=== PATIENT | female | born 1955 | race Caucasian/White ===

== ENCOUNTER 2018-04-03 13:05 | Emergency (ER) | payer MEDICAID ==
[~2018-04-03] VITALS: Ht 160 cm; Wt 80.3 kg
[2018-04-03 13:28] VITALS: BP 125/77
[2018-04-03 13:56] LABS: BASOPHILS % (AUTO) 0.7 % (0-1); EOSINOPHILS # (AUTO) 0.2 X10'3 (0-0.9); HEMOGLOBIN 11.9 g/dl (12.0-16.0); LYMPHOCYTES # (AUTO) 1.4 X10'3 (1.1-4.8); MEAN CORPUSCULAR HEMOGLOBIN 26.8 PG (27.0-31.0); MEAN CORPUSCULAR VOLUME 81.2 FL (78-98); MEAN PLATELET VOLUME 8.6 FL (7.4-10.4); MONOCYTES # (AUTO) 0.6 X10'3 (0-0.9); MONOCYTES % (AUTO) 11.6 % (2-12); NEUTROPHILS # (AUTO) 3.2 X10'3 (1.8-7.7); NEUTROPHILS % (AUTO) 58.7 % (42-75); PLATELET COUNT 267 X10'3 (140-440); RED BLOOD COUNT 4.44 X10'6 (4.20-5.60); RED CELL DISTRIBUTION WIDTH 16.5 % (11.5-14.5); WHITE BLOOD COUNT 5.5 X10'3 (4.5-11.0)
[2018-04-03 14:19] LABS: ALANINE AMINOTRANSFERASE 21 U/L (12-78); ALBUMIN 2.9 G/DL (3.4-5.0); ALBUMIN/GLOBULIN RATIO 0.7 (1.1-1.5); ALKALINE PHOSPHATASE 119 IU/L (46-116); ANION GAP 11 (8-16); ASPARTATE AMINO TRANSFERASE 17 U/L (10-37); BILIRUBIN,TOTAL 0.2 MG/DL (0.1-1.0); BLOOD UREA NITROGEN 17 MG/DL (7-18); CALCIUM 8.4 MG/DL (8.5-10.1); CHLORIDE 99 MMOL/L (99-107); CREATININE 0.63 MG/DL (0.40-0.90); GLUCOSE 123 MG/DL (70-104); POTASSIUM 3.9 MMOL/L (3.5-5.1); SODIUM 135 MMOL/L (135-145); TOTAL CARBON DIOXIDE 25.3 MMOL/L (24-32); TOTAL PROTEIN 7.1 G/DL (6.4-8.2); eGFR > 90 ML/MIN
[2018-04-03 16:01] LABS: CLARITY,URINE CLEAR (Clear); COLOR,URINE YELLOW (Yellow); GLUCOSE, URINE NEGATIVE (Neg); KETONES,URINE NEGATIVE (Neg); LEUKOCYTE ESTERASE ,URINE NEGATIVE (Neg); NITRITES, URINE NEGATIVE (Neg); OCCULT BLOOD,URINE TRACE-INTACT (Neg); PH,URINE 6.5 (4.8-8.0); PROTEIN,URINE NEGATIVE (Neg); UROBILINOGEN,URINE 0.2 E.U/dL (0.2-1.0)
[2018-04-03 16:02] LABS: UA COLLECTION TYPE VOIDED
[2018-04-03 16:07] LABS: BACTERIA,URINE FEW /HPF (Neg); MUCUS STRANDS NONE SEEN /LPF (Neg); RBC,URINE 0-2 /HPF (0-2); SQUAMOUS EPITHELIAL CELL,UR NONE SEEN /LPF (FEW); WBC,URINE 0-4 /HPF (0-4)
[2018-04-03] MEDS ORDERED: GEL3000G TOP (16:49)
== END 2018-04-03 17:18 | disposition home or self-care (01) ==
LOC: ER 13:06
DX: T81.89XA Other complications of procedures, not elsewhere classified, initial encounter (principal); L08.9 Local infection of the skin and subcutaneous tissue, unspecified; Z88.5 Allergy status to narcotic agent; Z88.8 Allergy status to other drugs, medicaments and biological substances; Z79.899 Other long term (current) drug therapy; Y92.9 Unspecified place or not applicable
CPT/HCPCS: 36415; 71045; 80053; 81001; 83605; 84145; 85025; 87040; 87186; 99285; A6223; A6449; 87077

== ENCOUNTER 2021-09-05 08:49 | Outpatient (CLI) | payer MEDICARE ==
[~2021-09-05 08:49] MED LIST: GEL3000G TOP
== END 2021-09-05 23:59 | disposition home or self-care (01) ==
LOC: RAD 08:49
PROVIDERS: ATTEND Psychiatry & Neurology Neurology
DX: G43.409 Hemiplegic migraine, not intractable, without status migrainosus (principal)
CPT/HCPCS: 95816

== ENCOUNTER 2021-09-23 12:36 | Outpatient (CLI) | payer MEDICARE | END 2021-09-23 23:59 | disposition home or self-care (01) | LOC: CARD DIAG 12:36 | PROVIDERS: ATTEND Internal Medicine Cardiovascular Disease | DX: I08.1 Rheumatic disorders of both mitral and tricuspid valves (principal); G43.409 Hemiplegic migraine, not intractable, without status migrainosus | CPT/HCPCS: 93306 ==

== ENCOUNTER 2023-10-07 02:32 | Outpatient (CLI) | payer MEDICARE ==
[2023-10-07] VITALS (21 sets, daily range): BP systolic 99–125; BP diastolic 42–73; PULSE 51–57
== END 2023-10-07 23:59 | disposition home or self-care (01) ==
LOC: CARD DIAG 02:32
PROVIDERS: ATTEND Internal Medicine Interventional Cardiology
DX: R55 Syncope and collapse (principal)
CPT/HCPCS: 93660

== ENCOUNTER 2024-05-18 06:39 | Inpatient (IN) | payer MEDICARE ==
[2024-05-12 11:02] LABS: BILIRUBIN,URINE NEGATIVE (Neg); CLARITY,URINE CLEAR (Clear); COLOR,URINE YELLOW (Yellow); GLUCOSE, URINE NEGATIVE (Neg); KETONES,URINE NEGATIVE (Neg); LEUKOCYTE ESTERASE ,URINE NEGATIVE (Neg); NITRITES, URINE NEGATIVE (Neg); OCCULT BLOOD,URINE NEGATIVE (Neg); PROTEIN,URINE NEGATIVE (Neg)
[2024-05-12 11:06] LABS: UA COLLECTION TYPE CLN CATCH MIDSTREAM
[2024-05-12 11:10] LABS: EOSINOPHILS # (AUTO) 0.1 X10'3 (0-0.9); EOSINOPHILS % (AUTO) 3.5 % (0-6); LYMPHOCYTES # (AUTO) 1.3 X10'3 (1.1-4.8); MEAN CORPUSCULAR HEMOGLOBIN 31.2 PG (27.0-31.0); MEAN CORPUSCULAR HGB CONC 33.5 g/dL (33.0-36.5); MEAN CORPUSCULAR VOLUME 93.1 FL (78-98); MEAN PLATELET VOLUME 8.4 FL (7.4-10.4); MONOCYTES # (AUTO) 0.3 X10'3 (0-0.9); MONOCYTES % (AUTO) 9.5 % (2-12); NEUTROPHILS # (AUTO) 1.8 X10'3 (1.8-7.7); PRE OP HEMATOCRIT 37.6 % (35.0-45.0); PRE OP HEMOGLOBIN 12.6 g/dL (12.0-16.0); PRE OP PLATELET COUNT 210 X10'3 (140-440); PRE OP WHITE BLOOD COUNT 3.6 10'3 (4.8-10.8); RED BLOOD COUNT 4.04 X10'6 (4.20-5.60); RED CELL DISTRIBUTION WIDTH 15.1 % (11.5-14.5)
[2024-05-12 11:17] LABS: ALBUMIN 3.2 G/DL (3.4-5.0); ALBUMIN/GLOBULIN RATIO 0.8 (1.1-1.5); ALKALINE PHOSPHATASE 88 IU/L (46-116); BLOOD UREA NITROGEN 18 MG/DL (7-18); CALCIUM 8.7 MG/DL (8.5-10.1); CHLORIDE 104 MMOL/L (99-107); CREATININE 0.62 MG/DL (0.40-0.90); PRE OP ALT 24 U/L (30-65); PRE OP ANION GAP 7 (8-16); PRE OP AST 24 U/L (10-37); PRE OP BILIRUB, TOTAL 0.4 MG/DL (0.0-1.0); PRE OP GLUCOSE 92 MG/DL (70-104); PRE OP POTASSIUM 4.7 MMOL/L (3.4-5.1); PRE OP SODIUM 139 MMOL/L (135-145); TOTAL CARBON DIOXIDE 28.4 MMOL/L (24-32); eGFR > 90 ML/MIN
[2024-05-12 11:21] LABS: PRE OP PROTIME 10.7 SECONDS (9.0-12.0)
[2024-05-18] VITALS (19 sets, daily range): BP systolic 90–132; BP diastolic 53–81; PULSE 58–75; RESP 12–18; TEMP 97.3–98.5; O2SAT 84–100
[~2024-05-18] VITALS: Ht 157.5 cm; Wt 74.0 kg
[2024-05-18] MEDS: famotidine 20mg tablet PO ONE (05:30)
[2024-05-18] MEDS: ringers solution, lacted 1,000 ML IV SCH ×2 (05:30→11:17)
[~2024-05-18 06:39] MED LIST changes: +CARV3.122 PO; +ESCI20TA39 PO; +FURO-150 PO; +GABA-1555 PO; -GEL3000G TOP; +LEMB10TA PO; +MULT1CAP66 PO; +QUET150T2 PO; +RIVA20TA PO; +VITAMIN B12 PO; +ZALE5CAP2 PO; +ondansetron/PF 4mg/2ml inj IV PRN
[2024-05-18] MEDS: ceFAZolin 2gm in dextrose, iso 50 ML IV ONE (06:52)
[2024-05-18] MEDS: DOCUMENT DATE & TIME OF BETA-BLOCKER PO ONE (06:52)
[2024-05-18] MEDS: vancomycin 1,500 MG in NS 300ml IV soln IV ONE (07:32)
[2024-05-18] MEDS ORDERED: proCHLORperazine 10 MG/2 ml inj IV PRN ×2 (07:55→09:45)
[2024-05-18] MEDS ORDERED: ondansetron/PF 4mg/2ml inj IV PRN ×2 (07:55→09:45)
[2024-05-18] MEDS ORDERED: meperidine/PF 25mg/ml syringe IV PRN ×2 (07:55)
[2024-05-18] MEDS ORDERED: iohexol 350MG/ML 100ml bottle IV ONE (08:20)
[2024-05-18] MEDS ORDERED: LIDOcaine 1% (10mg/ml) 2ml vial ONE ×2 (08:20→08:41)
[2024-05-18] MEDS ORDERED: fentaNYL/PF 50MCG/1 ML 2ML syringe ONE (08:30)
[2024-05-18] MEDS ORDERED: midazolam 1 mg/ML 2ml injection ONE (08:31)
[2024-05-18] MEDS ORDERED: sevoflurane 250ml liquid IH ONE (08:48)
[2024-05-18] MEDS ORDERED: heparin 1,000unit/ml 10ml vial 10 ML ONE (09:24)
[2024-05-18] MEDS ORDERED: propofol inj 20 ML IV ONE (09:25)
[2024-05-18] MEDS ORDERED: rocuronium 10mg/ml inj IV ONE (09:25)
[2024-05-18] MEDS ORDERED: ePHEDrine 50MG/ML INJ. ONE (09:26)
[2024-05-18] MEDS ORDERED: dexamethasone sod phosphate 4mg/ml inj. ONE (09:26)
[2024-05-18] MEDS ORDERED: ondansetron/PF 4mg/2ml inj ONE (09:26)
[2024-05-18] MEDS ORDERED: sugammadex 200mg/2ml injection IV ONE (09:32)
[2024-05-18] MEDS ORDERED: labetalol 20mg/4ml (5mg/ml) syringe IV PRN (09:45)
[2024-05-18] MEDS ORDERED: potassium Cl 40MEQ/270ML bag 250 ML IV PRN (09:45)
[2024-05-18] MEDS ORDERED: potassium Cl 20mEq/100mL bag 100 ML IV PRN (09:45)
[2024-05-18] MEDS ORDERED: potassium Cl 20 mEq SR tablet PO PRN (09:45)
[2024-05-18] MEDS ORDERED: hydrALAZINE 20mg/ml inj. IV PRN (09:45)
[2024-05-18] MEDS ORDERED: magnesium sulf-water 2g/50mL 50 ML IV PRN (09:45)
[2024-05-18] MEDS ORDERED: potassium CL 10mEq/100ml bag 100 ML IV PRN (09:45)
[2024-05-18] MEDS ORDERED: pantoprazole 40mg Tablet.DR PO PRN (09:45)
[2024-05-18] MEDS ORDERED: diphenhydrAMINE 25mg capsule PO PRN (09:45)
[2024-05-18] MEDS ORDERED: potassium Cl 40MEQ/1/2NS 520ml 520 ML IV PRN (09:45)
[2024-05-18] MEDS ORDERED: ALPRAZolam 0.25mg tablet PO PRN (09:45)
[2024-05-18] MEDS ORDERED: magnesium sulf-water 4G/100mL 100 ML IV PRN (09:45)
[2024-05-18] MEDS: normal saline 1000ml 1,000 ML IV SCH (09:45)
[2024-05-18] MEDS: meperidine/PF 25mg/ml syringe IV PRN (10:02)
[2024-05-18] MEDS: HYDROcodone/acetaminophen 5mg/325mg tablet PO PRN (11:56)
[2024-05-18] MEDS: LIDOCAINE 2% (20mg/ml) w/EPINEPHRINE 1:200,000-PF 10 ML inj. SQ ONE (14:50)
[2024-05-18] MEDS: LIDOCAINE 2% w/EPI 1:200,000 multi-dose 20ml VIAL SQ ONE (15:00)
[2024-05-18] MEDS ORDERED: LIDOcaine 1% W/epiNEPHrine 1:100,000 20ml vial ONE ×2 (15:03→15:13)
[2024-05-18] MEDS: sod chloride 0.9% 10ml flush syringe IV SCH (16:00)
[2024-05-18] MEDS: ceFAZolin 1GM/D5W- ADD-VANTAGE 50 ML IV SCH (16:37)
[2024-05-18] MEDS ORDERED: INSULIN LISPRO 100 UNIT/ML INSULN.PEN MULTI-DOSE SQ STA (17:59)
[2024-05-18] MEDS: acetaminophen 325mg tablet PO PRN (19:48)
[2024-05-18] MEDS: carVEDilol 3.125mg tablet PO SCH (20:18)
[2024-05-18] MEDS: VANCOMYCIN 1GM 200ML H20 (PEG) 200 ML IV SCH (20:19)
[2024-05-18] MEDS: gabapentin 400mg capsule PO SCH (20:19)
[2024-05-18] MEDS: zolpidem 5mg tablet PO SCH (21:00)
[2024-05-18] MEDS: QUETIAPINE 150 MG TAB.SR.24H PO SCH (22:44)
[2024-05-19 02:00] VITALS: BP 86/47; PULSE 61; RESP 19; TEMP 97; O2SAT 93
[2024-05-19 06:00] VITALS: BP 90/45; PULSE 67; RESP 13; TEMP 97.4; O2SAT 92
[2024-05-19] MEDS: docusate sod 100mg capsule PO PRN (07:32)
[2024-05-19] MEDS: cyanocobalamin 500mcg tablet PO SCH (07:32)
[2024-05-19] MEDS: furosemide 20MG tablet PO SCH (07:33)
[2024-05-19] MEDS: rivaroxaban 20mg tablet PO SCH (07:34)
[2024-05-19 08:00] VITALS: RESP 13; O2SAT 92
[2024-05-19] MEDS ORDERED: escitalopram 20mg tablet PO SCH (08:00)
[2024-05-19] MEDS ORDERED: LEMBOREXANT 10 MG PO SCH (08:00)
[2024-05-19 08:25] LABS: BASOPHILS % (AUTO) 0.3 % (0-1); EOSINOPHILS % (AUTO) 0.7 % (0-6); HEMATOCRIT 34.7 % (35.0-45.0); HEMOGLOBIN 11.3 g/dl (12.0-16.0); LYMPHOCYTES # (AUTO) 1.9 X10'3 (1.1-4.8); LYMPHOCYTES % (AUTO) 33.1 % (21-51); MEAN CORPUSCULAR HEMOGLOBIN 30.5 PG (27.0-31.0); MEAN CORPUSCULAR HGB CONC 32.6 g/dL (33.0-36.5); MEAN CORPUSCULAR VOLUME 93.6 FL (78-98); MEAN PLATELET VOLUME 8.7 FL (7.4-10.4); MONOCYTES # (AUTO) 0.4 X10'3 (0-0.9); NEUTROPHILS # (AUTO) 3.3 X10'3 (1.8-7.7); NEUTROPHILS % (AUTO) 58.9 % (42-75); PLATELET COUNT 176 X10'3 (140-440); RED CELL DISTRIBUTION WIDTH 14.7 % (11.5-14.5); WHITE BLOOD COUNT 5.6 X10'3 (4.5-11.0)
[2024-05-19 09:02] LABS: ALANINE AMINOTRANSFERASE 29 U/L (12-78); ALBUMIN 3.1 G/DL (3.4-5.0); ALBUMIN/GLOBULIN RATIO 0.9 (1.1-1.5); ALKALINE PHOSPHATASE 87 IU/L (46-116); ANION GAP 3 (8-16); ASPARTATE AMINO TRANSFERASE 28 U/L (10-37); BILIRUBIN,TOTAL 0.3 MG/DL (0.1-1.0); BLOOD UREA NITROGEN 12 MG/DL (7-18); BUN/CREATININE RATIO 18.8 (10.0-20.0); CALCIUM 8.5 MG/DL (8.5-10.1); CHLORIDE 102 MMOL/L (99-107); CREATININE 0.64 MG/DL (0.40-0.90); GLUCOSE 92 MG/DL (70-104); MAGNESIUM 2.2 MG/DL (1.5-2.4); POTASSIUM 3.7 MMOL/L (3.5-5.1); PRO BRAIN NATRIURETIC PEPTIDE 758 PG/ML (0-125); SODIUM 137 MMOL/L (135-145); TOTAL CARBON DIOXIDE 31.6 MMOL/L (24-32); TOTAL PROTEIN 6.6 G/DL (6.4-8.2); eCRCL 65 ML/MIN; eGFR > 90 ML/MIN
[2024-05-19 09:30] LABS: PROTHROMBIN TIME 10.1 SECONDS (9.0-12.0)
[2024-05-19 11:00] VITALS: BP 114/59; PULSE 78; RESP 16; TEMP 98.3; O2SAT 92
[2024-05-19] MEDS: HYDROcodone/acetaminophen 10/325mg tab PO ONE (11:34)
[2024-05-19] MEDS ORDERED: ESCITALOPRAM 10 mg tablet 10 MG TABLET PO SCH (13:29)
[2024-05-19 15:00] VITALS: BP 91/53; PULSE 79; RESP 20; TEMP 97.6; O2SAT 95
== END 2024-05-19 15:57 | disposition home or self-care (01) | DRG 274 ==
LOC: PAS IN 06:39 → PCU 3S 11:30
PROVIDERS: ADMIT Student in an Organized Health Care Education/Training Program; ATTEND Student in an Organized Health Care Education/Training Program
PROC: B246ZZ4 Ultrasonography of Right and Left Heart, Transesophageal (ICD-10-PCS; 2024-05-18)
PROC: B54BZZA Ultrasonography of Right Lower Extremity Veins, Guidance (ICD-10-PCS; 2024-05-18)
PROC: 03HY32Z Insertion of Monitoring Device into Upper Artery, Percutaneous Approach (ICD-10-PCS; 2024-05-18)
PROC: 02L73DK Occlusion of Left Atrial Appendage with Intraluminal Device, Percutaneous Approach (ICD-10-PCS; principal; 2024-05-18 08:48)
DX: I48.91 Unspecified atrial fibrillation (principal); Z00.6 Encounter for examination for normal comparison and control in clinical research program; Z79.01 Long term (current) use of anticoagulants
CPT/HCPCS: 33340; 36415; 71045; 71046; 76937; 80053; 81003; 82948; 83735; 83880; 85025; 85347; 85610; 85730; 86885; 86900; 86901; 86920; 87081; 93005; 93308; 93312; 93325; A4615; A4618; A6258; A6449; C1760; C1889; C1893; C1894; G0378; J0690; J1100; J1644; J2003; J2175; J2250; J2405; J2704; J3010; J3372; J3490; J7040; J7120; Q9967

== ENCOUNTER 2024-06-16 13:01 | Outpatient (CLI) | payer MEDICARE ==
[~2024-06-16 13:01] MED LIST changes: -ondansetron/PF 4mg/2ml inj IV PRN
== END 2024-06-16 23:59 | disposition home or self-care (01) ==
LOC: RAD 13:01
PROVIDERS: ATTEND Family Medicine
DX: R13.10 Dysphagia, unspecified (principal); J68.0 Bronchitis and pneumonitis due to chemicals, gases, fumes and vapors; Z79.01 Long term (current) use of anticoagulants; Z79.899 Other long term (current) drug therapy; Z98.84 Bariatric surgery status
CPT/HCPCS: 74230

== ENCOUNTER 2024-07-11 10:29 | Day surgery (SDC) | payer MEDICARE ==
[~2024-07-11] VITALS: Ht 157.5 cm; Wt 75.6 kg
[2024-07-11] VITALS (18 sets, daily range): BP systolic 96–120; BP diastolic 49–78; PULSE 50–61; RESP 10–18; TEMP 97.8; O2SAT 92–100
[2024-07-11 12:07] LABS: BASOPHILS % (AUTO) 1.1 % (0-1); EOSINOPHILS # (AUTO) 0.1 X10'3 (0-0.9); EOSINOPHILS % (AUTO) 2.5 % (0-6); HEMATOCRIT 32.7 % (35.0-45.0); HEMOGLOBIN 10.9 g/dl (12.0-16.0); LYMPHOCYTES # (AUTO) 1.6 X10'3 (1.1-4.8); LYMPHOCYTES % (AUTO) 44.5 % (21-51); MEAN CORPUSCULAR HEMOGLOBIN 29.8 PG (27.0-31.0); MEAN CORPUSCULAR HGB CONC 33.3 g/dL (33.0-36.5); MEAN CORPUSCULAR VOLUME 89.4 FL (78-98); MONOCYTES # (AUTO) 0.4 X10'3 (0-0.9); MONOCYTES % (AUTO) 9.8 % (2-12); NEUTROPHILS # (AUTO) 1.5 X10'3 (1.8-7.7); NEUTROPHILS % (AUTO) 42.1 % (42-75); PLATELET COUNT 178 X10'3 (140-440); RED BLOOD COUNT 3.65 X10'6 (4.20-5.60); RED CELL DISTRIBUTION WIDTH 13.8 % (11.5-14.5); WHITE BLOOD COUNT 3.7 X10'3 (4.5-11.0)
[2024-07-11] MEDS: normal saline 1000ml 1,000 ML IV SCH (12:10)
[2024-07-11 12:17] LABS: ALBUMIN 2.8 G/DL (3.4-5.0); ANION GAP 3 (8-16); BLOOD UREA NITROGEN 13 MG/DL (7-18); BUN/CREATININE RATIO 23.6 (10.0-20.0); CALCIUM 8.4 MG/DL (8.5-10.1); CHLORIDE 103 MMOL/L (99-107); CREATININE 0.55 MG/DL (0.40-0.90); GLUCOSE 79 MG/DL (70-104); SODIUM 136 MMOL/L (135-145); TOTAL CARBON DIOXIDE 30.1 MMOL/L (24-32); eCRCL 75 ML/MIN; eGFR > 90 ML/MIN
[2024-07-11 12:45] LABS: APTT 28 SECONDS (22-32); PROTHROMBIN TIME 10.7 SECONDS (9.0-12.0)
[2024-07-11] MEDS ORDERED: CLOP-32 PO (13:11)
[2024-07-11] MEDS ORDERED: ASPI-611 PO (13:11)
[2024-07-11] MEDS: fentaNYL/PF 50MCG/1 ML 2ML syringe IV ONE (13:39)
[2024-07-11] MEDS: MIDAZolam 1mg/ml 10ml vial IV ONE (13:39)
== END 2024-07-11 13:45 | disposition home or self-care (01) ==
LOC: SSTAY O 10:29 → EDSTATUS 12:30 → SSTAY O 13:45
PROVIDERS: ATTEND Student in an Organized Health Care Education/Training Program
DX: I48.0 Paroxysmal atrial fibrillation (principal); G47.33 Obstructive sleep apnea (adult) (pediatric); F41.9 Anxiety disorder, unspecified; I49.5 Sick sinus syndrome; Z86.73 Personal history of transient ischemic attack (TIA), and cerebral infarction without residual deficits; Z79.01 Long term (current) use of anticoagulants; Z79.899 Other long term (current) drug therapy; Z90.710 Acquired absence of both cervix and uterus; Z95.0 Presence of cardiac pacemaker; Z95.818 Presence of other cardiac implants and grafts; Z96.643 Presence of artificial hip joint, bilateral; Z98.84 Bariatric surgery status; Z98.890 Other specified postprocedural states; Z88.5 Allergy status to narcotic agent; Z88.8 Allergy status to other drugs, medicaments and biological substances; Z80.9 Family history of malignant neoplasm, unspecified
CPT/HCPCS: 36415; 80048; 85025; 85610; 85730; 93325; 94760; A4624; C8925; J2250; J3010; J7030; 93312